=== PATIENT | female | born 1960 | race Caucasian/White ===

== ENCOUNTER → 2016-11-23 | Outpatient (CLI) | payer OTHER ==
--- NOTE | 2016-11-24 08:26 | MM ---
Reason for exam: screening (asymptomatic). Last mammogram was performed 1 year and 1 month ago. History: Patient is postmenopausal. Family history of breast cancer in grandmother at age 60 and breast cancer in grandmother at age 40. Physical Findings: A clinical breast exam by your physician is recommended on an annual basis and results should be correlated with mammographic findings. MG Screening Mammo w CAD Bilateral CC and MLO view(s) were taken. Prior study comparison: October 23, 2015, left breast MG 3d work up w/cad LT. October 15, 2015, bilateral MG screening mammo w CAD. The breast tissue is heterogeneously dense. This may lower the sensitivity of mammography. Finding: There is a 8 mm low density (not containing fat) mass in the upper quadrant, central position of the left breast. ASSESSMENT: Incomplete: need additional imaging evaluation, BI-RAD 0 RECOMMENDATION: Special view mammogram of the left breast. If lesion persists on supplemental views, image directed ultrasound is recommended. [facility] will attempt to contact patient to return for supplemental views and ultrasound if indicated.
== END | disposition home or self-care (01) ==
LOC: RADMAMWWP 16:24
PROVIDERS: ATTEND Family Medicine
DX: Z12.31 Encounter for screening mammogram for malignant neoplasm of breast (principal)

== ENCOUNTER → 2016-11-26 | Outpatient (CLI) | payer OTHER ==
--- NOTE | 2016-11-27 07:18 | MM ---
Reason for exam: additional evaluation requested from abnormal screening. Last mammogram was performed less than 1 month ago. History: Patient is postmenopausal. Family history of breast cancer in grandmother at age 60 and breast cancer in grandmother at age 40. Physical Findings: Nurse did not find any significant physical abnormalities on exam. MG Work Up Mamm w CAD LT ML, spot compression CC, and spot compression MLO view(s) were taken of the left breast. Prior study comparison: November 23, 2016, bilateral MG screening mammo w CAD. October 23, 2015, left breast MG 3d work up w/cad LT. The breast tissue is heterogeneously dense. This may lower the sensitivity of mammography. There is no discrete abnormality including area of concern. These results were verbally communicated with the patient and result sheet given to the patient on 11/26/16. ASSESSMENT: Negative, BI-RAD 1 RECOMMENDATION: Return to routine screening mammogram schedule for both breasts.
== END | disposition home or self-care (01) ==
LOC: RADMAMWWP 14:40
PROVIDERS: ATTEND Family Medicine
DX: R92.8 Other abnormal and inconclusive findings on diagnostic imaging of breast (principal)

== ENCOUNTER → 2017-08-19 | Outpatient (CLI) | payer OTHER ==
--- NOTE | 2017-08-19 16:31 | BD ---
EXAMINATION TYPE: MG DEXA axial skeleton. DATE OF EXAM: 08/19/2017 COMPARISON: NONE CLINICAL HISTORY: Height: 5 FT 6 IN Weight: 203 FRAX RISK QUESTIONS: Alcohol (3 or more units per day): NO Family History (Parent hip fracture): NO Glucocorticoids (More than 3mos): NO (Ex: prednisone, prednisolone, methylprednisolone, dexamethasone, and hydrocortisone). History of Fracture in Adulthood: NO Secondary Osteoporosis: 1. Type 1 Diabetes: NO 2. Hyperthyroidism: NO 3. Menopause before 45: NO 4. Malnutrition: NO 5. Chronic liver disease: NO Rheumatoid Arthritis: NO Current Tobacco Use: YES RISK FACTORS HISTORY OF: Active: YES Postmenopausal woman: AGE 47 MEDICATIONS: Thyroid Medications: YES Which medication: SYNTHROID How Lon YRS Additional Medications: SYNTHROID, ,MOTRIN, XANAX, HYDROCODONE, LAMOTRIGINE, OMEPRAZOLE, VENLAFAXINE, VIT D3, ZOCOR, Additional History: EXAM MEASUREMENTS: Bone mineral densitometry was performed using the [employer] System. Bone mineral density as measured about the Lumbar spine is: ----- L1-L4(G/cm2): 0.973 T Score Values are as follows: ----- L2: -2.1 ----- L3: -1.8 ----- L4: -1.5 ----- L1-L4: -1.7 Bone mineral density has: Increased 1.4% since study of: 2009 Bone mineral density about the R hip (g/cm2): 0.847 Bone mineral density about the L hip (g/cm2): 0.790 T Score values are as follows: -----R Neck: -1.4 -----L Neck: -1.8 -----R Total: -0.9 -----L Total: -1.2 Bone mineral density has: Decreased -3.6% since study of: 2009 IMPRESSION: Osteopenia (T Score between -2.5 and -1 as noted by T score values There is slightly increased risk of fracture and the patient may be considered for treatment. Re-Screen 2-5 years. NOTE: T-SCORE=SD OF THE YOUNG ADULT MEAN.
== END | disposition home or self-care (01) ==
LOC: RADBDWWP 15:36
PROVIDERS: ATTEND Family Medicine
DX: M85.88 Other specified disorders of bone density and structure, other site (principal)
CPT/HCPCS: 77080

== ENCOUNTER → 2018-08-23 | Outpatient (CLI) | payer MEDICARE, OTHER ==
[2018-08-23 13:44] VITALS: BP 117/89; PULSE 90; TEMP 98.1; BMI 33.4
--- NOTE | 2018-08-23 14:23 | P.HPOB ---
History of Present Illness H&P Date: 08/23/18 Chief Complaint: The patient is here for her routine gynecologic exam and mammogram. This is a 57-year-old with an LMP of 2007. The patient is without gynecologic complaints and denies any postmenopausal bleeding. Review of Systems The patient's weight has been stable over the last year. She denies respiratory , cardiac, or G.I. problems. Past Medical History Past Medical History: No Reported History, Hyperlipidemia, Thyroid Disorder ( Hypothyroid) Additional Past Medical History / Comment(s): Chronic knee problems and osteopenia. PAST [employer] HISTORY: she does have a history of genital warts in the past and has no other history of STDs. History of Any Multi-Drug Resistant Organisms: None Reported Past Surgical History: Section, Orthopedic Surgery (Foot surgery and knee surgery), Tubal Ligation Additional Past Surgical History / Comment(s): Tubes placed in years as a child. Polyp removed from the rectum in 1979. Colonoscopy 2009. Past Psychological History: Bipolar Smoking Status: Current every day smoker (1 1/2 packs of cigarettes per day.) Past Alcohol Use History: None Reported Past Drug Use History: Marijuana Additional History: She's been with her boyfriend since 2001 but does not live with him. - Past Family History Mother Family Medical History: No Reported History Additional Family Medical History / Comment(s): Breast cancer in both grandmothers. Medications and Allergies Home Medications and Allergies Comment(s): She did not bring her list of medications but she believes they are probably the same as last year. Please refer to the 08/10/2017 H and P. Medications at that time included levothyroxine, lamotrigine, venlafaxine, simvastatin, [place], ibuprofen, and Xanax. Allergies Allergy/AdvReac Type Severity Reaction Status Date / Time cephalexin monohydrate Allergy Dyspnea Verified 08/23/18 13:39 [From Keflex] ciprofloxacin [From Cipro] Allergy Dyspnea Verified 08/23/18 13:39 ciprofloxacin HCl Allergy Dyspnea Verified 08/23/18 13:39 [From Cipro] Sulfa (Sulfonamide Allergy Rash/Hives Verified 08/23/18 13:39 Antibiotics) Exam Vital Signs Temp Pulse BP 08/23/18 13:40 98.1 F 90 117/89 Intake and Output 08/22/18 08/23/1808/23/18 22:59 06:59 14:59 Other: Weight 93.894 kg Height 5'6", weight 207 pounds, BMI 33.4. This is a well-developed well-nourished white female who is alert and oriented times 3 in no acute distress. HEENT: Within normal limits. NECK: Supple without mass or thyromegaly. CHEST AND LUNGS: Clear to auscultation. HEART: Regular rate and rhythm. BREASTS: Are without mass or discharge. AXILLARY EXAM: Negative for adenopathy. BACK: Negative for CVA tenderness. ABDOMEN: Soft, nontender, without palpable masses. PELVIC EXAM: Normal external genitalia with mild to moderate atrophy. Cervix and vagina appear normal with mild atrophy. There is no unusual discharge. There is no evidence of prolapse. The uterus is midposition, nongravid size and nontender. There are no palpable adnexal masses or tenderness. RECTAL EXAM: rectovaginal exam is negative for mass or tenderness and is negative for occult blood. EXTREMITIES: Nontender. IMPRESSION: 1. 57-year-old menopausal female with normal gynecologic exam. 2. History of osteopenia PLAN: 1. Pap smear was deferred since she had a negative one last year. 2. Self breast awareness was discussed with the patient. 3. Screening mammogram will be done today. 4. Osteoporosis prevention was discussed. We will plan a repeating bone density screening in 1 to 2 years. 5. She will return in one year.
--- NOTE | 2018-08-24 13:23 | MM ---
Reason for exam: screening (asymptomatic). Last mammogram was performed 1 year and 9 months ago. History: Patient is postmenopausal. Family history of breast cancer in grandmother at age 60 and breast cancer in grandmother at age 40. Physical Findings: A clinical breast exam by your physician is recommended on an annual basis and results should be correlated with mammographic findings. MG 3D Screening Mammo W/Cad Bilateral CC and MLO view(s) were taken. Prior study comparison: November 26, 2016, left breast MG work up mamm w CAD LT. November 23, 2016, bilateral MG screening mammo w CAD. The breast tissue is heterogeneously dense. This may lower the sensitivity of mammography. No suspicious abnormality. No significant changes when compared with prior studies. ASSESSMENT: Negative, BI-RAD 1 RECOMMENDATION: Routine screening mammogram of both breasts in 1 year.
== END | disposition home or self-care (01) ==
LOC: WWCWWP 12:51
PROVIDERS: ATTEND Obstetrics & Gynecology
DX: Z12.31 Encounter for screening mammogram for malignant neoplasm of breast (principal)
CPT/HCPCS: 77063; 77067

== ENCOUNTER → 2019-01-13 | Outpatient (CLI) | payer MEDICARE ==
[2019-01-13 13:32] LABS: Basophils % (A) 1 %; Eosinophils # (A) 0.1 k/uL (0-0.7); Eosinophils % (A) 1 %; HCT 41.3 % (34.0-46.0); HGB 13.2 gm/dL (11.4-16.0); Lymphocytes # (A) 1.9 k/uL (1.0-4.8); Lymphocytes % (A) 27 %; MCH 29.6 pg (25.0-35.0); MCHC 31.9 g/dL (31.0-37.0); MCV 92.7 fL (80.0-100.0); Mean Platelet Volume 6.2; Monocytes # (A) 0.3 k/uL (0-1.0); Monocytes % (A) 5 %; Neutrophils # (A) 4.6 k/uL (1.3-7.7); Neutrophils % (A) 65 %; Platelet Count 263 k/uL (150-450); RBC 4.46 m/uL (3.80-5.40); RDW 13.1 % (11.5-15.5)
[2019-01-13 19:00] LABS: Albumin 4.5 g/dL (3.80-4.90); Albumin/Globulin Ratio 2.37 (1.60-3.17); Anion Gap 8.1 mmol/L (4.00-12.00); Calcium 9.3 mg/dL (8.7-10.3); Carbon Dioxide 26.9 mmol/L (21.6-31.8); Globulin 1.9 g/dL (1.6-3.3); LDL Cholesterol,Calculated 101.2 mg/dL (0.0-131.0); Potassium 3.9 mmol/L (3.5-5.5); Total Bilirubin 0.7 mg/dL (0.2-1.2); Total Protein 6.4 g/dL (6.2-8.2); VLDL Calculation 44.8 mg/dL (5.00-40.00)
== END | disposition home or self-care (01) ==
LOC: LABWHC1 12:00
PROVIDERS: ATTEND Nurse Practitioner Family
DX: E78.2 Mixed hyperlipidemia (principal); E03.9 Hypothyroidism, unspecified; M15.0 Primary generalized (osteo)arthritis; F41.1 Generalized anxiety disorder
CPT/HCPCS: 36415; 80053; 80061; 84443; 85025

== ENCOUNTER → 2019-04-27 | Outpatient (CLI) | payer MEDICARE ==
--- NOTE | 2019-04-20 09:08 | WWPN ---
[facility] - PROGRESS NOTE The patient has called today complaining of yeast infection symptoms. She has been having a vulvar irritation with a slight milky discharge. She denies odor. She has not used antibiotics recently. She has gotten yeast infections with similar symptoms and she states Diflucan is what typically helps her. She is requesting a prescription for Diflucan. IMPRESSION: Probable Nevaeh vaginitis. PLAN: Diflucan 150 mg p.o. x1. The prescription for this was called in to [facility] pharmacy in [place]. One refill was given. The patient was instructed to call if she is not having improvement or problems. She will return for her annual exam in approximately 5 months. MMODL / IJN: [id number] /
--- NOTE | 2019-04-27 16:22 | CTL ---
EXAMINATION TYPE: CT Low Dose Lung DATE OF EXAM ORDERED: 04/27/2019 HISTORY: 58-year-old female personal history of tobacco abuse. Lung cancer screening CT DLP: [address] CTDI: 2.33 mGy Automated exposure control for dose reduction was used. SCREENING VISIT: Baseline COMPARISON: None TECHNIQUE: Low dose computed tomography scan was performed through the chest at 1 mm thick sections a nd reconstructed images in the coronal and sagittal plane. Additional coronal MIP reconstruction perf ormed. CT DIAGNOSTIC QUALITY: Limited, but interpretable FINDINGS: Heart normal size without pericardial effusion. Mild coronary vessel calcifications are present. Aorta normal caliber with mild atherosclerotic arch calcifications with conventional vessel branching anatomy. Few scattered prominent but nonenlarged mediastinal lymph nodes measure up to 7 mm. No thoracic lymph adenopathy by CT size criteria. Multiple moderate diffuse bronchial wall thickening. Some scattered subpleural interstitial change an d groundglass density. Some mosaic attenuation is also present. No suspicious pulmonary nodules or masses no consolidation or pleural effusion. Visualized upper abdomen shows no gross abnormality. Bones: No osseous destructive process. Fatty matrix hemangiomas within the T3 and T8 vertebral bodies . IMPRESSION: 1. LungRADS 1 - negative; no suspicious pulmonary nodules or masses. 2. Scattered mosaic attenuation with mild to moderate bronchial wall thickening. Correlate for bronch itis/asthma and small airways disease. RECOMMENDATION: 1. Continue annual low-dose lung cancer screening CT. 2. Smoking cessation. FOLLOW UP CT CHEST RECOMMENDATION: [address] LUNG RAD: Lung-Rad 1 Negative
== END ==
LOC: RADCTMAIN 13:48
PROVIDERS: ATTEND Family Medicine
DX: Z12.2 Encounter for screening for malignant neoplasm of respiratory organs (principal); Z87.891 Personal history of nicotine dependence

== ENCOUNTER → 2019-05-09 | Outpatient (CLI) | payer MEDICARE ==
[2019-05-09 09:04] VITALS: BP 129/83; PULSE 76; RESP 18; TEMP 98.2; BMI 32.4
--- NOTE | 2019-05-09 09:41 | P.PN ---
Progress Note - Text Progress Note Date: 05/09/19 Chief Complaint: skin irritation in the area of the vulva, perineum and perianal areas for 2-3 weeks HPI: this is a 58-year-old with an LMP of 2008. Approximately 3 weeks ago, she developed vulvar irritation and she thought she may have had a yeast infection. Please see the 04/27/2019 progress note. She was prescribed Diflucan which she took one on 04/27/2019. The irritation seems slightly better but then again got worse and she took another Diflucan on 05/04/2019. The symptoms only slightly improved. She states it feels like diaper rash in the area of the vulva, perineum and perianal areas. She denies discharge or odor. ROS: she denies respiratory or cardiac problems. G.I.: some stomach upset today. PE: Blood pressure: 129/83, Height: 5 feet 6 inches, Weight: 201 pounds, Temperature: 98.2, Pulse: 76. Pulse ox 94%. This is a well developed, well nourished, white female who is alert and orientedx3, in no acute distress. External genitalia reveals mild atrophy. There is palor at the posterior lateral aspect of the labia majora bilaterally. There is fairly well-defined mild erythema that extends from the area of the posterior lateral labia majora to the perineum and perianal areas. This is not raised and there is mild excoriation without ulceration. Alivia: mild atrophy with no unusual discharge or odor. Impression: 1. 58-year-old with vulvar, perineum and perianal irritation. Differential diagnosis will include irritation following yancy vaginitis treatment, contact dermatitis, lichen sclerosis, erythema intertrigo and less likely vulvar dysplasia. Plan: 1. Kenalog 0.1% cream BID PRN. She will also use small amount of petroleum jelly or A and D ointment at alternating times as a protective layer. She will avoid over washing, and chlorinated water until this has healed up. I have also recommended using a warm hairdryer to dry the area after bathing. 2. She will return in 2 weeks for reevaluation. If not improving, consider skin biopsy. Time spent with the patient: 15 minutes
== END | disposition home or self-care (01) ==
LOC: WWCWWP 08:45
PROVIDERS: ATTEND Obstetrics & Gynecology
DX: Z53.9 Procedure and treatment not carried out, unspecified reason (principal)

== ENCOUNTER → 2020-10-15 | Outpatient (CLI) | payer MEDICARE ==
[2020-10-15 14:59] VITALS: BP 117/80; PULSE 77; RESP 20; TEMP 97.9
--- NOTE | 2020-10-15 15:53 | P.PN ---
Progress Note - Text Progress Note Date: 10/15/20 Chief Complaint: Perineal irritation for 1 week. HPI: Is is a 59-year-old with an LMP of 2008. Approximately 1 week ago she developed irritation in the area of the perineum, perianal area and lateral labia. She has noticed redness and this area hua if urine touches this area. She states this feels somewhat similar to when she came and saw me for on 05/09/2019. She was given Diflucan by her primary care physician and she feels that this helped slightly. She has noticed some minimal amount of creamy discharge. She denies vaginal odor. She has no history of genital herpes. She is with the same partner and she states they are infrequently sexually active. She states her partner does not have any history of herpes and is not experiencing symptoms. She denies any new sexual partners. She states she has been showering less often because she is down about current affairs in 2020 including the Covid pandemic. She has been showering less than once per week recently. ROS: She denies fever, respiratory, cardiac, or GI problems. PE: Blood pressure: 117/80, Height: 5 feet 6-1/2 inches, Weight: 216 pounds, Temperature: 97.9, Pulse: 77. Pulse oximeter 96%. This is a well developed, well nourished, heavyset white female who is alert and orientedx3, in no acute distress. External genitalia reveals mild atrophy. There is pallor at the posterior margin of the lateral labia majora bilaterally. There is mild erythema that extends from the posterior lateral labia majora to the perineum and perianal areas. There is mild excoriation involving the perineum and perianal areas. This is fairly well demarcated and seems to be in the areas where there is skin to skin contact. There are no focal ulceration areas and this does not have the appearance of typical genital herpes. Vagina: There is a small amount of creamy discharge within the vagina. No significant odor is noted. There is no cervical motion tenderness. Bimanual examination reveals a nongravid size uterus which is tender and no palpable adnexal masses or tenderness. Impression: 1. 59-year-old menopausal female with lateral vulvar, perineal and perianal irritation. Differential diagnosis will include vaginitis involving the vulva and posterior areas, chronic irritation from chronic moisture, lichen sclerosus, intertrigo, and less likely, vulvar dysplasia. Plan: 1. Lotrisone cream twice a day for 2 weeks. The electronic prescription will be sent to [facility] pharmacy. She will also use A and D Ointment or petroleum jelly once a day midway between Lotrisone doses. She will use this as a protective barrier. She was also instructed to bathe or shower once a day using small amounts of soap and making sure she rinses thoroughly. She will also try to dry the area thoroughly and use a warm blow dryer to ethylene plant helper in drying this area. She is to avoid overheating it with the blow dryer to avoid burning the tissue. 2. A firm vaginitis panel was obtained from the vagina to check for yancy, Gardnerella and Trichomonas. 3. She is to return in 2 weeks for recheck. We will consider biopsying this tissue if her symptoms are not improving. Time spent with the patient: 20 minutes
--- NOTE | 2020-10-16 09:15 | P.PN ---
Progress Note - Text Progress Note Date: 10/16/20 OUTPATIENT FOLLOW-UP NOTE TEST(S)/RESULTS: Affirm testing done on 10/15/2020 was positive for Nevaeh and negative for neural and Trichomonas. METHOD OF NOTIFICATION: Patient was notified by phone. PATIENT COMMENTS: DIAGNOSIS: Nevaeh vaginitis and vulvitis. DISCUSSION: Terazole 7 cream, one applicator into the vagina daily at bedtime 7 days. She will also use the Lotrisone cream to the perianal and perineal areas as directed. The electronic prescription will be sent to [facility] pharmacy. PLAN: As above. She will call if problems. And still return for recheck in 2 weeks.
== END | disposition home or self-care (01) ==
LOC: WWCWWP 14:38
PROVIDERS: ATTEND Obstetrics & Gynecology
DX: Z53.9 Procedure and treatment not carried out, unspecified reason (principal)

== ENCOUNTER → 2020-10-29 | Outpatient (CLI) | payer MEDICARE ==
[2020-10-29 15:35] VITALS: BP 124/79; PULSE 96; RESP 20; TEMP 97.5
--- NOTE | 2020-10-29 16:06 | P.PN ---
Progress Note - Text Progress Note Date: 10/29/20 Chief Complaint: Follow-up for perineal irritation and Nevaeh vulvitis. HPI: This is a 59-year-old with an LMP of 2008. The patient was seen on 10/15/2020 because of skin irritation in the area of the posterior labia, perineum and perianal areas. Affirm testing was positive for Nevaeh. She was treated with Terazole 7 cream which she states did help slightly but continues to feel very irritated especially when wiping. She did not use the petroleum jelly or and the ointment as recommended. She states she does not have a history of diabetes but does not believe she has been tested for this. ROS: Unremarkable, but states it is difficult to white in the rectal area because of the skin irritation. PE: Blood pressure: 124/79, Height: 5 feet 6 inches, Weight: 215 pounds, Temperature: 97.5, Pulse: 96. Pulse oximeter 97%. This is a well developed, well nourished, heavyset white female who is alert and orientedx3, in no acute distress. External genitalia reveals mild atrophy. There still is mild pallor at the posterior margin of the labia majora posteriorly. As the buttock cheeks are spread apart, there is pink granulation type tissue with small areas of excoriation in the areas where the skin meets in the midline in the perineal and perianal areas. This seems partially healed with exception to the small areas of excoriation. Vaginal exam: No unusual discharge or odor is noted. Impression: 1. 59-year-old menopausal female with slight improvement in Nevaeh vulvitis extending to the perineum and perianal areas. 2. In situations with slow healing in the vulva and perineal areas following Nevaeh vaginitis/vulvitis I believe diabetes is much more likely. Plan: 1. She will use the refill of the Terazole 7 cream and apply this just inside of the vagina and to the posterior vulva, perineal and perianal areas. This will be applied daily at bedtime 7 days. 2. She will also use petroleum jelly after showering or bathing in the morning. She will apply this as a physical barrier layer to help the skin heal. 3. Blood tests will include random glucose, hemoglobin A1c, and CBC with differential. 4. She will return in 2 weeks for recheck. Time spent with the patient: 20 minutes
[2020-10-29 17:12] LABS: Basophils % (A) 1 %; Eosinophils # (A) 0.1 k/uL (0-0.7); Eosinophils % (A) 1 %; HCT 41.2 % (34.0-46.0); HGB 13.6 gm/dL (11.4-16.0); Lymphocytes # (A) 1.7 k/uL (1.0-4.8); Lymphocytes % (A) 20 %; MCH 31.1 pg (25.0-35.0); MCHC 33.1 g/dL (31.0-37.0); Mean Platelet Volume 7.1; Monocytes # (A) 0.4 k/uL (0-1.0); Monocytes % (A) 5 %; Neutrophils # (A) 6.1 k/uL (1.3-7.7); Neutrophils % (A) 71 %; Platelet Count 218 k/uL (150-450); RBC 4.38 m/uL (3.80-5.40); RDW 13.7 % (11.5-15.5); WBC 8.5 k/uL (3.8-10.6)
[2020-10-30 03:45] LABS: Hemoglobin A1C 5.8 % (4.0-6.0)
== END | disposition home or self-care (01) ==
LOC: WWCWWP 15:21
PROVIDERS: ATTEND Obstetrics & Gynecology
DX: Z00.00 Encounter for general adult medical examination without abnormal findings (principal); B37.3 Candidiasis of vulva and vagina
CPT/HCPCS: 36415; 82947; 83036; 85025

== ENCOUNTER → 2020-11-12 | Outpatient (CLI) | payer MEDICARE ==
[2020-11-12 15:01] VITALS: BP 114/78; PULSE 82; RESP 20; TEMP 97.7
--- NOTE | 2020-11-12 15:28 | P.PN ---
Progress Note - Text Progress Note Date: 11/12/20 Chief Complaint: Follow-up for severe candidal vulvitis affecting the perineum and perianal areas. HPI: There is a 60-year-old menopausal female who was seen 2 weeks ago for vulvitis involving the perineum and perianal areas. She had positive testing for Nevaeh and was treated with Terazole 7 cream. Things are gradually improving but fairly slowly. She did take Diflucan orally. She feels that things have significantly improved and is feeling much better. She is now able to wipe after bowel movements without problem. Additional testing: Hemoglobin A1c drawn 2 weeks ago was borderline. PE: Blood pressure: 114/78, Height: Feet 6 inches, Weight: And 18 pounds, Temperature: 97.7, Pulse: 82. Pulse oximeter 96% This is a well developed, well nourished, heavyset white female who is alert and orientedx3, in no acute distress. External genitalia: Mild atrophy with minimal posterior erythema. The perineum and the surrounding buttock skin is now healed without excoriation. Perianal area: There is mild erythema. Impression: 1. 60-year-old menopausal female with significant improvement with Nevaeh vulvitis involving the perineal and perianal areas Plan: 1. She understands that hemoglobin A1c is not diagnostic for diabetes however she is at risk for diabetes and may want to be tested for this formally. 2. She will keep the vulva, perineal and perianal areas clean and dry. 3. She will return in about 7 months at the time she is due for her mammogram for her annual well woman visit and mammogram. She will also return as needed. Time spent with the patient: 15 minutes
== END | disposition home or self-care (01) ==
LOC: WWCWWP 14:39
PROVIDERS: ATTEND Obstetrics & Gynecology
DX: Z53.9 Procedure and treatment not carried out, unspecified reason (principal)

== ENCOUNTER → 2021-06-27 | Outpatient (CLI) | payer MEDICARE, OTHER ==
--- NOTE | 2021-06-30 09:39 | MM ---
Reason for exam: screening (asymptomatic). Last mammogram was performed 1 year and 1 month ago. History: Patient is postmenopausal. Family history of breast cancer in grandmother at age 60 and breast cancer in grandmother at age 40. Physical Findings: A clinical breast exam by your physician is recommended on an annual basis and results should be correlated with mammographic findings. MG 3D Screening Mammo W/Cad Bilateral CC and MLO view(s) were taken. Prior study comparison: May 29, 2020, bilateral MG 3d screening mammo w/cad. The breast tissue is heterogeneously dense. This may lower the sensitivity of mammography. There is no discrete abnormality. No significant changes when compared with prior studies. ASSESSMENT: Negative, BI-RAD 1 RECOMMENDATION: Routine screening mammogram of both breasts in 1 year.
== END | disposition home or self-care (01) ==
LOC: RADMAMWWP 13:09
PROVIDERS: ATTEND Family Medicine
DX: Z12.31 Encounter for screening mammogram for malignant neoplasm of breast (principal); Z80.3 Family history of malignant neoplasm of breast
CPT/HCPCS: 77063; 77067

== ENCOUNTER → 2021-07-10 | Outpatient (CLI) | payer MEDICARE, OTHER ==
--- NOTE | 2021-07-10 14:39 | CTL ---
EXAMINATION TYPE: CT Low Dose Lung DATE OF EXAM ORDERED: 07/10/2021 HISTORY: Long-term tobacco use. Lung cancer screening CT DLP: 126.[address] CTDI: 3.6 mGy Automated exposure control for dose reduction was used. SCREENING VISIT: For staff to baseline COMPARISON: CT low-dose lung April 27, 2019 TECHNIQUE: Low dose computed tomography scan was performed through the chest at 1 mm thick sections a nd reconstructed images in the coronal plane at [address] DIAGNOSTIC QUALITY: Satisfactory FINDINGS: LUNG NODULES: Present, detailed below: New 9.0 x 5.7 mm right middle lobe nodule axial image 129. In retrospect stable 5.0 x 2.9 mm anterior right upper lobe nodule-image 54 LUNGS: COPD: Severity: Mild Fibrosis: Severity: Moderate to severe bilateral peripheral fibrotic change with some progression fro m 2019 Lymph nodes: Other findings: Enlarged main pulmonary artery at 3.9 cm. RIGHT PLEURAL SPACE: Effusion: None Calcification: None Thickening: None Pneumothorax: None LEFT PLEURAL SPACE: Effusion: None Calcification: None Thickening: None Pneumothorax: None HEART: Heart Size: Normal Coronary calcification: Moderate Pericardial effusion: None OTHER FINDINGS: Upper abdomen: None. Bony thorax: There is S-shaped scoliosis redemonstrated. Supraclavicular region: None. Other: None. IMPRESSION: Worsening moderate bilateral parenchymal fibrotic changes greatest in the periphery from 2019. New suspicious 9.0 x 5.7 mm right middle lobe nodule. CT LUNG RAD AND CT CHEST RECOMMENDATION: Lung-Rad 4B or 4X Very Suspicious: Follow-up Chest CT with o r without contrast or PET/CT and/or tissue sampling. PET/CT may be used when there is a > 8 mm solid component. S Modifier (other clinically significant findings): S Worsening bilateral fibrotic change from 2019. Correlate for IPF or other etiology. Consider PET/CT follow-up for new nodule.
== END | disposition home or self-care (01) ==
LOC: RADCTMAIN 12:34
PROVIDERS: ATTEND Family Medicine
DX: R91.1 Solitary pulmonary nodule (principal); Z87.891 Personal history of nicotine dependence
CPT/HCPCS: 71271

== ENCOUNTER 2021-07-31 09:32 | Day surgery (SDC) | payer MEDICARE, OTHER ==
[2021-07-29 15:32] VITALS: BMI 34.7
[2021-07-31] MEDS ORDERED: LACTATED RINGERS 1,000 ML IV SCH (09:50)
[2021-07-31] MEDS ORDERED: LIDOCAINE 1% (10MG/ML) FOR IV START INTRADERMA PRN (09:50)
[2021-07-31 09:58] VITALS: RESP 16; TEMP 97.8
--- NOTE | 2021-07-31 11:46 | P.GSHP ---
History of Present Illness H&P Date: 07/31/21 Chief Complaint: Screening colonoscopy This is a 60-year-old female who presents today for screening colonoscopy. Patient denies a significant GI complaints. Past Medical History Past Medical History: Hyperlipidemia, Thyroid Disorder Additional Past Medical History / Comment(s): had one episode of bleeding with stool, hxChronic knee problems and osteopenia. 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 History of Any Multi-Drug Resistant Organisms: None Reported Past Surgical History: Section, Orthopedic Surgery, Tubal Ligation Additional Past Surgical History / Comment(s): Tubes placed keyla ears.Polyp removed from the rectum in 1979. Colonoscopy 2009. Past Anesthesia/Blood Transfusion Reactions: No Reported Reaction, Family History of Problems w/ Anesthesia Additional Past Anesthesia/Blood Transfusion Reaction / Comment(s): mom takes along time to wake up with anesthesia Smoking Status: Current every day smoker - Past Family History Mother Family Medical History: No Reported History Additional Family Medical History / Comment(s): Breast cancer in both grandmothers. Medications and Allergies Home Medications Medication Instructions Recorded Confirmed Type HYDROcodone/APAP 7.5-325MG [[place] 1 tab PO Q6HR PRN 05/09/19 07/29/21 History 7.5-325] Ibuprofen [Motrin] 800 mg PO DAILY 05/09/19 07/29/21 History Levothyroxine Sodium [Synthroid] 137 mcg PO DAILY 05/09/19 07/29/21 History Rosuvastatin Calcium 20 mg PO HS 07/29/21 07/29/21 History Venlafaxine HCl ER [Effexor Xr] 75 mg PO 1600 07/29/21 07/29/21 History hydrOXYzine HCL [Atarax] 50 mg PO DAILY PRN 07/29/21 07/29/21 History lamoTRIgine [LaMICtal] 150 mg PO 1600 07/29/21 07/29/21 History Allergies Allergy/AdvReac Type Severity Reaction Status Date / Time cephalexin monohydrate Allergy Dyspnea Verified 07/31/21 09:54 [From Keflex] ciprofloxacin [From Cipro] Allergy Dyspnea Verified 07/31/21 09:54 ciprofloxacin HCl Allergy Dyspnea Verified 07/31/21 09:54 [From Cipro] Sulfa (Sulfonamide Allergy Rash/Hives Verified 07/31/21 09:54 Antibiotics) Surgical - Exam Vital Signs Temp Pulse Resp BP Pulse Ox 97.8 F 89 16 147/80 95 07/31/21 09:57 07/31/21 09:57 07/31/21 09:57 07/31/21 09:57 07/31/21 09:57 - General well developed, well nourished, no distress - Eyes PERRL - ENT normal pinna - Neck no masses - Respiratory normal expansion - Cardiovascular Rhythm: regular - Abdomen Abdomen: soft, non tender Assessment and Plan Assessment: We'll perform screening colonoscopy.
[2021-07-31] MEDS ORDERED: PROPOFOL 10 MG/ML 20 ML VIAL IV ONE (11:52)
--- NOTE | 2021-07-31 12:09 | P.OP ---
Date of Procedure: 07/31/21 Preoperative Diagnosis: Screening colonoscopy Postoperative Diagnosis: Diverticulosis Procedure(s) Performed: Colonoscopy Anesthesia: MAC Surgeon: Modesto Goff Pathology: none sent Condition: stable Disposition: PACU Description of Procedure: The patient's placed on the endoscopy table in the lateral position. She received IV sedation. It'll rectal exam was performed which revealed no abnormalities. Flexible colonoscopy was then placed patient anus and passed throughout the entire colon. The ileocecal valve was visualized. The cecum, ascending and transverse colon appeared normal. In the descending; was mild diverticular changes. Scope was brought back the rectum and this appeared normal. Scope was withdrawn for patient.
[2021-07-31 12:30] VITALS: BP 118/77; PULSE 96
== END 2021-07-31 13:03 | disposition home or self-care (01) ==
LOC: ORWHC2ENDO 09:32
PROVIDERS: ATTEND Surgery
DX: Z12.11 Encounter for screening for malignant neoplasm of colon (principal); K57.30 Diverticulosis of large intestine without perforation or abscess without bleeding; E78.5 Hyperlipidemia, unspecified; E07.9 Disorder of thyroid, unspecified; M85.80 Other specified disorders of bone density and structure, unspecified site; Z98.891 History of uterine scar from previous surgery; Z86.19 Personal history of other infectious and parasitic diseases; Z98.51 Tubal ligation status; Z98.890 Other specified postprocedural states; F17.200 Nicotine dependence, unspecified, uncomplicated; Z96.22 Myringotomy tube(s) status; Z80.3 Family history of malignant neoplasm of breast; Z79.1 Long term (current) use of non-steroidal anti-inflammatories (NSAID); Z79.890 Hormone replacement therapy; Z79.899 Other long term (current) drug therapy; Z88.1 Allergy status to other antibiotic agents; Z88.2 Allergy status to sulfonamides
CPT/HCPCS: J2704; G0121

== ENCOUNTER → 2021-08-15 | Outpatient (CLI) | payer MEDICARE, OTHER ==
--- NOTE | 2021-08-16 08:43 | PE ---
EXAMINATION TYPE: PET CT fusion skull to thigh DATE OF EXAM: 08/15/2021 COMPARISON: Low-dose lung screening CT July 10, 2021 HISTORY: Abnormal CT. Solitary pulmonary nodule. TECHNIQUE: Following the intravenous administration of 9.76 mCi of F-18 FDG, whole body images are p erformed from the skull base to the midthigh. Images are reviewed on the computer in the coronal, ax ial, and sagittal planes. Reconstructed rotating images are created on independent workstation and r eviewed on the computer. A localization and attenuation correction CT is performed in conjunction w ith the PET scan. The blood glucose level equals 118. SCAN: Initial Scan FINDINGS: SKULL BASE AND NECK: No suspicious hypermetabolic uptake. CHEST, MEDIASTINUM, AND HILAR REGION: Moderate parenchymal fibrotic changes redemonstrated bilaterall y. Stable 9 x 5 mm right mid lung nodule axial image 84 is ametabolic. Stable 4 to 5 mm anterior righ t upper lung nodule axial image 63 is ametabolic. No areas of abnormal hypermetabolic uptake. ABDOMEN AND PELVIS: No suspicious hypermetabolic uptake. OSSEOUS STRUCTURES: No suspicious hypermetabolic uptake. OTHER CT: There is cardiomegaly with moderate to severe three-vessel coronary artery calcification. Occasional distal colonic diverticula. Scattered bilateral pelvic phleboliths. IMPRESSION: No suspicious hypermetabolic uptake to suggest malignancy. Advise CT and/or PET CT follow -up in 6-12 months time to reassess.
== END | disposition home or self-care (01) ==
LOC: RADPETMAIN 12:08
PROVIDERS: ATTEND Family Medicine
DX: R91.1 Solitary pulmonary nodule (principal)
CPT/HCPCS: 78815; A9552

== ENCOUNTER → 2021-11-04 | Outpatient (CLI) | payer MEDICARE, OTHER ==
[2021-11-04 12:55] VITALS: BP 114/77; PULSE 106; RESP 18; TEMP 97.7
--- NOTE | 2021-11-04 13:48 | P.HPOB ---
History of Present Illness H&P Date: 11/04/21 Chief Complaint: The patient is here for her routine gynecologic exam. This is a 61-year-old 013 with an LMP of 2007. The patient is without gynecologic complaints and denies any postmenopausal bleeding. Review of Systems The patient's weight has been stable over the last year. She denies respiratory, cardiac, or G.I. problems. Past Medical History Past Medical History: Hyperlipidemia, Thyroid Disorder Additional Past Medical History / Comment(s): Hypothyroidism. Chronic knee problems and osteopenia. 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 History of Any Multi-Drug Resistant Organisms: None Reported Past Surgical History: Section, Orthopedic Surgery, Tubal Ligation Additional Past Surgical History / Comment(s): Tubes placed in years as a child. Polyp removed from the rectum in 1979. Colonoscopy 2020. Past Psychological History: Bipolar Smoking Status: Current every day smoker (1-1/2 packs per day.) Past Alcohol Use History: None Reported Past Drug Use History: Marijuana Additional History: She has been with her boyfriend since 2001 but does not live with him. - Past Family History Mother Family Medical History: No Reported History Additional Family Medical History / Comment(s): Breast cancer in both grandmothers. Medications and Allergies Home Medications Medication Instructions Recorded Confirmed Type HYDROcodone/APAP 7.5-325MG [[place] 1 tab PO Q6HR PRN 05/09/19 11/04/21 History 7.5-325] Ibuprofen [Motrin] 800 mg PO DAILY 05/09/19 11/04/21 History Levothyroxine Sodium [Synthroid] 137 mcg PO DAILY 05/09/19 11/04/21 History Rosuvastatin Calcium 20 mg PO HS 07/29/21 11/04/21 History Venlafaxine HCl ER [Effexor Xr] 75 mg PO 1600 07/29/21 11/04/21 History hydrOXYzine HCL [Atarax] 50 mg PO DAILY PRN 07/29/21 11/04/21 History lamoTRIgine [LaMICtal] 150 mg PO 1600 07/29/21 11/04/21 History Allergies Allergy/AdvReac Type Severity Reaction Status Date / Time cephalexin monohydrate Allergy Dyspnea Verified 11/04/21 12:50 [From Keflex] ciprofloxacin [From Cipro] Allergy Dyspnea Verified 11/04/21 12:50 ciprofloxacin HCl Allergy Dyspnea Verified 11/04/21 12:50 [From Cipro] Sulfa (Sulfonamide Allergy Rash/Hives Verified 11/04/21 12:50 Antibiotics) Exam Vital Signs Temp Pulse Resp BP Pulse Ox 11/04/21 12:50 97.7 F 106 H 18 114/77 94 L Intake and Output 11/03/21 11/04/21 11/04/21 22:59 06:59 14:59 Other: Weight 93.44 kg Height 5 feet 6 inches, weight 206 pounds, BMI 33.2. This is a well-developed well-nourished white female who is alert and oriented times 3 in no acute distress. HEENT: Within normal limits. NECK: Supple without mass or thyromegaly. CHEST AND LUNGS: There are scattered rhonchi in bilateral lung castillo with slightly prolonged expiration without wheezes. The patient has had a recent chest x-ray and CT scan of the chest through her PCP. HEART: Regular rate and rhythm. BREASTS: Are without mass or discharge. AXILLARY EXAM: Negative for adenopathy. BACK: Negative for CVA tenderness. ABDOMEN: Soft, nontender, without palpable masses. PELVIC EXAM: Normal external genitalia with mild atrophy. There is slight pallor in the creases surrounding the labia toward the perineum. This has a benign appearance. Cervix and vagina appear normal with mild atrophy. There is no unusual discharge. There is no evidence of prolapse. The uterus is midposition, nongravid size and nontender. There are no palpable adnexal masses or tenderness. RECTAL EXAM: Rectovaginal exam is negative for mass or tenderness and is negative for occult blood. EXTREMITIES: Nontender. IMPRESSION: 1. 61-year-old menopausal female with normal gynecologic exam. 2. History of osteopenia. PLAN: 1. Pap smear was performed. 2. Self breast awareness was discussed with the patient. We have also discussed symptoms associated with inflammatory breast cancer. 3. Screening mammogram was done on 06/27/2021 and was benign. She will repeat this after 1 year. The order slip for a mammogram in June 2022 was given to the patient. 4. Osteoporosis prevention was discussed. I have stressed the importance of adequate calcium, vitamin D and regular exercise. Recommended amounts of calcium and vitamin D were also discussed. I have recommended bone density testing since her last one was in 2017. The order slip was given to the patient for this. 5. She has not received a Covid vaccination. I have recommended getting a Covid vaccination especially with her being a smoker and at her age. She says she will consider this, but states she does not want to get. 6. She was advised to return in one year for her annual well woman exam.
== END | disposition home or self-care (01) ==
LOC: WWCWWP 12:16
PROVIDERS: ATTEND Obstetrics & Gynecology
DX: Z53.9 Procedure and treatment not carried out, unspecified reason (principal)

== ENCOUNTER → 2023-04-27 | Outpatient (CLI) | payer MEDICARE, OTHER ==
[2023-04-27 14:09] VITALS: BP 99/70; PULSE 69; RESP 18; TEMP 98.4
--- NOTE | 2023-04-27 14:54 | P.HPOB ---
History of Present Illness H&P Date: 04/27/23 Chief Complaint: The patient is here for her routine gynecologic exam and ma mmogram. This is a 62-year-old 013 with an LMP of 2007. The patient is without gynecologic complaints and denies any postmenopausal bleeding. Last year she was seen for vulvar irritation which improved significantly after using Diflucan. She states it feels much better, but she states sometimes if she does scratch the area near the creases, it feels like the skin might tear. Review of Systems She denies respiratory or cardiac problems. GI: Occasional indigestion or heartburn. Past Medical History Past Medical History: Hyperlipidemia, Thyroid Disorder Additional Past Medical History / Comment(s): Hypothyroidism. Chronic knee problems and osteopenia. 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 History of Any Multi-Drug Resistant Organisms: None Reported Past Surgical History: Section, Orthopedic Surgery, Tubal Ligation Additional Past Surgical History / Comment(s): Tubes placed in years as a child. Polyp removed from the rectum in 1979. Colonoscopy 2020. Past Psychological History: Bipolar Smoking Status: Current every day smoker (About 1 pack of cigarettes per day which is down from the past.) Past Alcohol Use History: None Reported Past Drug Use History: Marijuana (Does not use every day.) Additional History: She has been with her boyfriend since 2001 and does not live with him. - Past Family History Mother Family Medical History: No Reported History Additional Family Medical History / Comment(s): Breast cancer in both grandmothers. Medications and Allergies Home Medications Medication Instructions Recorded Confirmed Type HYDROcodone/APAP 7.5-325MG [[place] 1 tab PO Q6HR PRN 05/09/19 04/27/23 History 7.5-325] Ibuprofen [Motrin] 800 mg PO DAILY 05/09/19 04/27/23 History Levothyroxine Sodium [Synthroid] 137 mcg PO DAILY 05/09/19 04/27/23 History Rosuvastatin Calcium 20 mg PO HS 07/29/21 04/27/23 History lamoTRIgine [LaMICtal] 150 mg PO 1600 07/29/21 04/27/23 History DULoxetine HCL [Cymbalta] 60 mg PO DAILY 06/27/23 06/27/23 History Allergies Allergy/AdvReac Type Severity Reaction Status Date / Time cephalexin monohydrate Allergy Dyspnea Verified 04/27/23 14:02 [From Keflex] ciprofloxacin [From Cipro] Allergy Dyspnea Verified 04/27/23 14:02 ciprofloxacin HCl Allergy Dyspnea Verified 04/27/23 14:02 [From Cipro] Sulfa (Sulfonamide Allergy Rash/Hives Verified 04/27/23 14:02 Antibiotics) Exam Vital Signs Temp Pulse Resp BP Pulse Ox 04/27/23 14:04 98.4 F 69 18 99/70 97 Intake and Output 04/26/23 04/27/23 04/27/23 22:59 06:59 14:59 Other: Weight 89.358 kg Height 5 feet 6 inches, weight 197 pounds, BMI 31.8. This is a well-developed well-nourished white female who is alert and oriented times 3 in no acute distress. HEENT: Within normal limits. NECK: Supple without mass or thyromegaly. CHEST AND LUNGS: Clear to auscultation. HEART: Regular rate and rhythm. BREASTS: Are without mass or discharge. AXILLARY EXAM: Negative for adenopathy. BACK: Negative for CVA tenderness. ABDOMEN: Soft, nontender, without palpable masses. PELVIC EXAM: External genitalia reveals mild to moderate atrophy with some mild pallor in the creases at the lateral aspect of the labia majora extending to the perianal areas. There is no ulceration or excoriation. Cervix and vagina appear normal with mild atrophy. There is no unusual discharge. There is no evidence of prolapse. The uterus is midposition, nongravid size and nontender. There are no palpable adnexal masses or tenderness. RECTAL EXAM: Rectovaginal exam is negative for mass or tenderness and is negative for occult blood. EXTREMITIES: Nontender. IMPRESSION: 1. 62-year-old menopausal female with mild pallor in the creases at the lateral aspect of the labia majora extending to the perianal area. Differential diagnosis will include chronic irritation, mild lichen sclerosis of the vulva, and less likely chronic yancy vaginitis. 2. History of osteopenia. PLAN: 1. Pap smear was deferred since she had a negative Pap smear on 11/04/2021. 2. Self breast awareness was discussed with the patient. We have also discussed symptoms associated with inflammatory breast cancer. 3. Screening mammogram will be done today. 4. Osteoporosis prevention was discussed. I have stressed the importance of adequate calcium, vitamin D and regular exercise. Recommended amounts of calcium and vitamin D were also discussed. Bone density test will be done today. 5. The mild pallor noted in the genital area was discussed with the patient. I stressed the importance of not over washing and trying to avoid scratching and rubbing. She seems to be minimally symptomatic with this. Kenalog 0.1% cream twice a day as needed for vulvar irritation or itching. She was instructed to call she's having increasing problems. The electronic prescription will be sent to [facility] pharmacy in [place]. 6. She was advised to return in one year for her annual well woman exam and as needed.
--- NOTE | 2023-04-28 08:47 | MM ---
Reason for Exam: Screening (asymptomatic). Last mammogram was performed 1 year(s) and 10 month(s) ago. Patient History: Menarche at age 14. First Full-Term at age 26. Postmenopausal. Maternal grandmother had breast cancer, age 60. Maternal grandmother had breast cancer, age 40. Risk Values: Gale 5 year model risk: 1.6%. NCI Lifetime model risk: 6.8%. Prior Study Comparison: 08/23/2018 Bilateral Screening Mammogram, [facility]. 05/29/2020 Bilateral Screening Mammogram, [facility]. 06/27/2021 Bilateral Screening Mammogram, [facility]. Tissue Density: The breast tissue is heterogeneously dense. This may lower the sensitivity of mammography. Findings: Analyzed By CAD. There is no suspicious group of microcalcifications or new suspicious mass in either breast. Overall Assessment: Negative, BI-RAD 1 Management: Screening Mammogram of both breasts in [address] [facility] will attempt to contact patient to return for supplemental views and ultrasound if indicated. Patient should continue monthly self-breast exams. A clinical breast exam by your physician is recommended on an annual basis. This exam should not preclude additional follow-up of suspicious palpable abnormalities. Note on Gale scores and lifetime risk: 1. A Gale score greater than 3% is considered moderate risk. If this is the case, consider specialist referral to assess eligibility for a risk reducing agent. 2. If overall lifetime risk for the development of breast cancer is 20% or higher, the patient may qualify for future screening with alternating mammogram and breast MRI. Electronically signed and approved by: Luis Eduardo Alejo DO
--- NOTE | 2023-04-28 09:16 | BD ---
EXAMINATION TYPE: Axial Bone Density DATE OF EXAM: 04/27/2023 CLINICAL HISTORY: 62 years old Female. ICD-10 CODE: Z78.0 POST MENOPAUSAL WITHOUT HRT Height: 5 ft 6in Weight: 197 FRAX RISK QUESTIONS: Alcohol (3 or more units per day): no Family History (Parent hip fracture): yes Glucocorticoids (More than 3mos): no (Ex: prednisone, prednisolone, methylprednisolone, dexamethasone, and hydrocortisone). History of Fracture in Adulthood: no Secondary Osteoporosis: 1. Type 1 Diabetes: no 2. Hyperthyroidism: no 3. Menopause before 45: no 4. Malnutrition: no 5. Chronic liver disease: no Rheumatoid Arthritis: no Current Tobacco Use: yes RISK FACTORS HISTORY OF: Surgery to Spine/Hip(right/left)/Wrist (right/left): no Family History of Osteoporosis: no Active: no Diet low in dairy products/other sources of calcium: no Postmenopausal woman: yes Take estrogen and/or progesterone medications: no Lost more than 2 inches in height since high school: no Frequent falls: no Poor Health: good Hyperparathyroidism: no Adrenal Insufficiency: no MEDICATIONS: Thyroid Medications: yes Which medication: levothyroxine How Long: since 1987 Additional Medications: levothyroxine, lidocaine as needed, duloxetine, hydrocodone acetaminophen, r osuvastatin, Lamotrigine, Additional History: EXAM MEASUREMENTS: Bone mineral densitometry was performed using the JustSpotted System. Bone mineral density as measured about the Lumbar spine is: ----- L1-L4(G/cm2): 0.921 T Score Values are as follows: ----- L1: -2.4 ----- L2: -2.8 ----- L3: -2.1 ----- L4: -1.6 ----- L1-L4: -2.2 Z Score Values are as follows: ----- L1: -1.7 ----- L2: -2.2 ----- L3: -1.5 ----- L4: -0.9 ----- L1-L4: -1.5 Bone mineral density has: decreased -5.3 % since study of: 2017 Bone mineral density about the R hip (g/cm2): 0.773 Bone mineral density about the L hip (g/cm2): 0.773 T Score values are as follows: -----R Neck: -1.9 -----L Neck: -1.9 -----R Total: -1.6 -----L Total: -1.7 Z Score values are as follows: -----R Neck: -1.0 -----L Neck: -1.0 -----R Total: -1.0 -----L Total: -1.2 Bone mineral density has: decreased -8.7 % since study of: 2017 FRAX%s: The graph provided illustrates a 10.0 % chance for a major osteoporotic fx and a 2.1 % chance for the hips probability for fx in 10 years time. IMPRESSION: Osteopenia (T Score between -2.5 and -1). There is slightly increased risk of fracture and the patient may be considered for treatment. Re-Screen 2-5 years. NOTE: T-SCORE=SD OF THE YOUNG ADULT MEAN.
== END ==
LOC: WWCWWP 13:47
PROVIDERS: ATTEND Obstetrics & Gynecology
DX: Z12.31 Encounter for screening mammogram for malignant neoplasm of breast (principal); Z78.0 Asymptomatic menopausal state; E03.9 Hypothyroidism, unspecified; E78.5 Hyperlipidemia, unspecified; F17.210 Nicotine dependence, cigarettes, uncomplicated; L28.0 Lichen simplex chronicus; M85.80 Other specified disorders of bone density and structure, unspecified site; Z79.890 Hormone replacement therapy; Z79.899 Other long term (current) drug therapy; Z80.3 Family history of malignant neoplasm of breast; Z88.1 Allergy status to other antibiotic agents; Z88.2 Allergy status to sulfonamides; Z88.8 Allergy status to other drugs, medicaments and biological substances
CPT/HCPCS: 77063; 77067; 77080

== ENCOUNTER → 2024-08-23 | Outpatient (CLI) | payer MEDICARE, OTHER ==
--- NOTE | 2024-08-25 08:37 | MM ---
Reason for Exam: Screening (asymptomatic). Last mammogram was performed 1 year(s) and 4 month(s) ago. Patient History: Menarche at age 14. First Full-Term at age 26. Postmenopausal. Maternal grandmother had breast cancer, age 60. Maternal grandmother had breast cancer, age 40. Risk Values: Gale 5 year model risk: 1.6%. NCI Lifetime model risk: 6.6%. Prior Study Comparison: 05/29/2020 Bilateral Screening Mammogram, [facility]. 06/27/2021 Bilateral Screening Mammogram, [facility]. 04/27/2023 Bilateral MG 3D screening mammo w/cad, [facility]. Tissue Density: The breasts are heterogeneously dense, which may obscure small masses. Findings: Analyzed By CAD. There is no suspicious group of microcalcifications or new suspicious mass in either breast. Overall Assessment: Negative, BI-RAD 1 Management: Screening Mammogram of both breasts in 1 year. . Patient should continue monthly self-breast exams. A clinical breast exam by your physician is recommended on an annual basis. This exam should not preclude additional follow-up of suspicious palpable abnormalities. Note on Gale scores and lifetime risk: 1. A Gale score greater than 3% is considered moderate risk. If this is the case, consider specialist referral to assess eligibility for a risk reducing agent. 2. If overall lifetime risk for the development of breast cancer is 20% or higher, the patient may qualify for future screening with alternating mammogram and breast MRI. [facility], , 08/25/2024 8:34 AM. Electronically signed and approved by: Eladio Arellano M.D. Radiologis
== END | disposition home or self-care (01) ==
LOC: RADMAMWWP 15:52
PROVIDERS: ATTEND Family Medicine
CPT/HCPCS: 77063; 77067

== ENCOUNTER → 2025-04-12 | Outpatient (CLI) | payer MEDICARE, OTHER ==
[2025-04-12 19:26] LABS: Basophils # (A) 0.02 X 10*3/uL (0.00-0.10); Basophils % (A) 0.4 %; Eosinophils # (A) 0.05 X 10*3/uL (0.04-0.35); Eosinophils % (A) 1.1 %; HCT 37.6 % (37.2-46.3); Lymphocytes # (A) 1.85 X 10*3/uL (0.90-5.00); Lymphocytes % (A) 39.2 %; MCH 32.9 pg (27.0-32.0); MCHC 31.9 g/dL (32.0-37.0); Mean Platelet Volume 10.7 FL (9.5-12.2); Monocytes # (A) 0.26 X 10*3/uL (0.20-1.00); Monocytes % (A) 5.5 %; NRBC Per 100 WBC 0.02 X 10*3/uL (0.00-0.01); Neutrophils # (A) 2.53 X 10*3/uL (1.80-7.70); Neutrophils % (A) 53.6 %; Platelet Count 163 X 10*3/uL (140-440); RBC 3.65 X 10*6/uL (4.10-5.20); RDW 15.6 % (11.5-14.5); WBC 4.72 X 10*3/uL (4.50-10.00)
[2025-04-12 19:37] LABS: ALT 16 U/L (8-44); AST 20 U/L (13-35); Albumin 4.5 g/dL (3.8-4.9); Alkaline Phosphatase 127 U/L (41-126); BUN/Creat Ratio 16.83 Ratio (12.00-20.00); Blood Urea Nitrogen 10.1 mg/dL (9.0-27.0); Calcium 9.1 mg/dL (8.7-10.3); Carbon Dioxide 24.7 mmol/L (21.6-31.8); Chloride 106 mmol/L (96-109); Chol/HDL Ratio 2.76 Ratio; Globulin 2.5 g/dL (1.6-3.3); Glucose 105 mg/dL (70-110); LDL Cholesterol,Calculated 67.8 mg/dL (0.0-131.0); Potassium 4.4 mmol/L (3.5-5.5); Sodium 142 mmol/L (135-145); T4, Free (Free Thyroxine) 1.37 ng/dL (0.80-1.80); Total Bilirubin 0.8 mg/dL (0.3-1.2); VLDL Calculation 17.56 mg/dL (5.00-40.00)
== END | disposition home or self-care (01) ==
LOC: LABWHC1 14:35
PROVIDERS: ATTEND Family Medicine
DX: E03.9 Hypothyroidism, unspecified (principal); E78.2 Mixed hyperlipidemia
CPT/HCPCS: 36415; 80053; 80061; 84439; 84443; 85025